=== PATIENT | male | born 1985 | race Caucasian/White ===

== ENCOUNTER 2022-05-07 09:11 | Inpatient (IN) | payer OTHER ==
[~2022-05-07] VITALS: Ht 185.4 cm; Wt 122.5 kg
[2022-05-07 09:55] LABS: HEMOGLOBIN 15.5 gm/dl (14.0-17.5); RED BLOOD COUNT 4.45 M/UL (4.20-5.50); WHITE BLOOD COUNT 9.8 K/UL (4.5-11.0)
[2022-05-07 10:21] LABS: BUN/CREATININE RATIO 17 (0-10)
[2022-05-08 03:25] LABS: HEMOGLOBIN 15.6 gm/dl (14.0-17.5); RED BLOOD COUNT 4.37 M/UL (4.20-5.50)
[2022-05-08 03:53] LABS: BUN/CREATININE RATIO 15 (0-10)
[2022-05-09 02:05] LABS: HEMOGLOBIN 14.7 gm/dl (14.0-17.5); RED BLOOD COUNT 4.12 M/UL (4.20-5.50); WHITE BLOOD COUNT 16.3 K/UL (4.5-11.0)
[2022-05-09 03:06] LABS: BUN/CREATININE RATIO 11 (0-10)
[2022-05-10 03:44] LABS: BUN/CREATININE RATIO 12 (0-10)
[2022-05-10 03:48] LABS: HEMOGLOBIN 13.3 gm/dl (14.0-17.5); RED BLOOD COUNT 3.8 M/UL (4.20-5.50)
[2022-05-10 04:19] LABS: WHITE BLOOD COUNT 11.7 K/UL (4.5-11.0)
== END 2022-05-10 09:57 | disposition home or self-care (01) | DRG 440 ==
LOC: ER1 09:11 → CDU 12:52 → M/S 12:52
PROVIDERS: Emergency Medicine; Internal Medicine; Physician Assistant; ADMIT Internal Medicine
DX: K85.20 Alcohol induced acute pancreatitis without necrosis or infection (principal); F10.10 Alcohol abuse, uncomplicated; Z20.822 Contact with and (suspected) exposure to COVID-19; R74.01 Elevation of levels of liver transaminase levels; F17.210 Nicotine dependence, cigarettes, uncomplicated; Z71.6 Tobacco abuse counseling; Z83.3 Family history of diabetes mellitus; Z80.8 Family history of malignant neoplasm of other organs or systems; Z82.3 Family history of stroke
CPT/HCPCS: 36415; 76700; 80048; 80053; 80061; 81001; 82150; 82962; 83605; 83690; 83735; 85025; 85027; 85610; 85652; 86140; 87040; 87086; 96374; 96375; 96376; 99285; C9113; J1170; J1885; J2185; J2270; J2405; J3411; J3475; J7030; Q9967